=== PATIENT | female | born 1980 | race African-American/Black ===

== ENCOUNTER 2022-10-29 21:18 | Emergency (ER) | payer BC ==
[~2022-10-29] VITALS: Ht 165.1 cm; Wt 63.5 kg
--- NOTE | 2022-10-29 22:18 | NUR ---
BIBSELF FROM HOME C/O R EAR PAIN SINCE YESTERDAY
[2022-10-29] MEDS ORDERED: CIPR7.5D9 RIGHT EAR (23:09)
[2022-10-29 23:16] VITALS: BP 146/94; TEMP 98.2
== END 2022-10-29 23:26 | disposition home or self-care (01) ==
LOC: ER 21:54
DX: H60.91 Unspecified otitis externa, right ear (principal); Z79.2 Long term (current) use of antibiotics; Z91.040 Latex allergy status